=== PATIENT | male | born 1990 | race Caucasian/White ===

== ENCOUNTER 2024-04-04 03:05 | Emergency (ER) | payer BC, SELFPAY ==
--- NOTE | ~2024-04-04 | CT_ITS ---
CT of the Abdomen and Pelvis: Indication: Abdominal pain Technique: 2.5 mm axial scans were obtained through the abdomen and pelvis following intravenous adm inistration of 100 cc of Omnipaque 350. Dose reduction technique was used on this scan by utilizing a utomated exposure control and iterative reconstruction technique. The dose-length product (DLP) was 1 002.99 mGy-cm. Findings: Scans through the lung bases demonstrate small hiatal hernia. The liver, spleen, pancreas, adrenals and kidneys are within normal limits. Probable tiny gallstone. No evidence of aortic aneurysm. There are several mildly enlarged epigastric lymph nodes (axial image 42, 45 for example).. No bowel obstruction or bowel wall thickening. There is no evidence to suggest acute appendicitis. Images through the pelvis were performed. Urinary bladder unremarkable. No pelvic mass seen. No ascit es. Impression: Mildly enlarged epigastric lymph nodes, nonspecific. Probable tiny gallstone. Reviewed, dictated and finalized at [facility]. Impression: Mildly enlarged epigastric lymph nodes, nonspecific. Probable tiny gallstone.
[2024-04-04 03:16] VITALS: BP 150/115; PULSE 77; RESP 16; O2SAT 99
[2024-04-04 03:17] VITALS: BP 145/104; PULSE 74; RESP 20; TEMP 36.8; O2SAT 100
[2024-04-04 03:18] VITALS: BP 145/104; PULSE 79; RESP 16; O2SAT 98
[2024-04-04 03:28] LABS: Basophils Absolute Auto 0.1 K/mm3 (0.0-0.1); Basophils Percent Auto 0.7 % (0.2-1.2); Eosinophils Absolute Auto 0.3 K/mm3 (0-0.3); Eosinophils Percent Auto 2.5 % (0-4.4); Hematocrit 41.5 % (42.0-52.0); Hemoglobin 13.9 g/dL (14.0-18.0); Immature Granulocyte Absolute 0.05 K/mm3 (0.00-0.031); Immature Granulocyte Percent A 0.4 % (0-0.5); Lymphocytes Absolute Auto 2.15 K/mm3 (0.9-3.2); Lymphocytes Percent Auto 17.5 % (18.3-44.2); Mean Corpuscular HGB Conc 33.5 g/dl (32-36); Mean Corpuscular Volume 86.5 fl (80-100); Mean Platelet Volume 9.8 fl (7.4-10.4); Monocytes Absolute Auto 0.9 K/mm3 (0.1-0.6); Monocytes Percent Auto 7.3 % (2.6-8.5); Neutrophils Absolute Auto 8.8 K/mm3 (1.3-6.7); Neutrophils Percent Auto 71.6 % (45.5-73.1); Platelet Count Result 295 k/mm3 (150-375); Red Cell Distribution Width 12.9 % (11.5-14.5); White Blood Count 12.3 K/mm3 (4.5-10.0)
[2024-04-04 03:30] VITALS: BP 142/102; PULSE 77; RESP 18; O2SAT 99
[2024-04-04 03:40] LABS: Alanine Aminotransferase 43 U/L (6-50); Alkaline Phosphatase 87 U/L (38-126); Anion Gap 8 mmol/L (4-12); Aspartate Amino Transferase 27 U/L (17-59); Bilirubin,Total 0.6 mg/dL (0.2-1.3); Blood Urea Nitrogen 14 mg/dL (9-20); Calcium 9.7 mg/dL (8.4-10.2); Carbon Dioxide 28 mmol/L (22-30); Chloride 105 mmol/L (98-107); Estimated CRCL calculation 109 ml/min; Estimated Glomerular Filt Rate > 60; Glucose 116 mg/dL (65-110); Lipase 389 U/L (23-300); Potassium 4.1 mmol/L (3.4-5.0); Sodium 141 mmol/L (137-145)
--- NOTE | 2024-04-04 03:43 | ED.ABDPAIN ---
HPI - Abdominal Pain General Chief Complaint: Abdominal Pain Stated Complaint: abd and back pain Time Seen by Provider: 04/04/24 03:19 History of Present Illness HPI narrative: Patient presenting here with abdominal pain, feels like it radiates to his back, has been ongoing on and off for the last month, today started around 11:00 p.m.. Associated nausea vomiting. No history of gallstones or pancreatitis Related Data Allergies Allergy/AdvReac Type Severity Reaction Status Date / Time PEANUTS Allergy Uncoded 01/23/12 14:48 Review of Systems Review of Systems: All systems reviewed & are unremarkable except as noted in HPI and below Exam Narrative: EXAMINATION OF ORGAN SYSTEMS/BODY AREAS: Constitutional: Vital signs per nursing GENERAL:[No acute distress, non-toxic appearing.] HEAD: Normal with no signs of head trauma. EYES: EOMI, conjunctiva normal ENT: Hearing grossly intact LUNGS: Nonlabored breathing. HEART: [Regular rate and rhythm], normal radial and DP pulses ABD: [Soft], [minimally tender to palpation periumbilical] EXT: Normal range of motion SKIN: [No rashes or lesions.] NEURO: [Alert and oriented x 3. No gross focal sensory or strength deficits.] PSYCH: Normal affect Course Vital Signs Vital signs: Vital Signs Temperature 98.3 F 04/04/24 03:17 Pulse Rate 74 04/04/24 03:17 Respiratory Rate 20 04/04/24 03:17 Blood Pressure 145/104 H 04/04/24 03:17 Pulse Oximetry 100 04/04/24 03:17 Oxygen Delivery Room Air 04/04/24 03:17 Temperature 98.3 F 04/04/24 03:17 Pulse Rate 74 04/04/24 03:17 Respiratory Rate 20 04/04/24 03:17 Blood Pressure 145/104 H 04/04/24 03:17 Pulse Oximetry 100 04/04/24 03:17 Oxygen Delivery Room Air 04/04/24 03:17 MDM - Abdominal Pain MDM Narrative Medical decision making narrative: Electronic medical record was reviewed. Patient presented to the ED with complaint of [abdominal pain and vomiting]. Vitals [were within acceptable limits]. Physical exam revealed [tenderness to palpation in periumbilical abdomen]. Based on the patient's history and physical exam, my differential includes but is not limited to [gastritis, gastroenteritis, cholecystitis, pancreatitis, appendicitis]. Very unlikely ACS without chest pain, dissection or other aortic catastrophe without risk factors, family history, or neurovascular deficits. [IV access was established by nursing staff. Patient was given zofran, Protonix, morphine]. CBC, BMP, lipase, LFTs, bilirubin and alk phos were obtained. Labs were pertinent for elevated lipase. [Decision was made to obtain a CT-abdomen to evaluate for acute abdominal process. CT-abdomen per radiology interpretation is unremarkable for acute intra-abdominal process, no signs of hydronephrosis, cholecystitis, appendicitis.] On reevaluation, the patient states that they are feeling much better. There were no witnessed episodes of vomiting in the emergency department. They are not complaining of any new abdominal pain. Repeat examination did not show any significant guarding or rebound. No new tenderness. At this time I do not feel there is any further emergent treatment to be provided. The patient was given strict return precautions, if they are to develop any worsening abdominal pain, vomiting, or blood in the vomit they are to return to the emergency department immediately. Patient verbally acknowledges understanding these directions. [The patient was informed of the above diagnostic test findings.] No further workup is necessary at this time. They will be discharged home [with prescriptions]. They were advised to follow-up with [their PCP] in 2 days. The patient feels that this is appropriate medical decision making and verbalizes an understanding of the discharge instructions. Lab Data 04/04/24 03:22 04/04/24 03:22 Labs: Lab Results 04/04/24 04/04/24 Range/Units 03:22 03:48 WBC 12.3 H (4.5-10.0
[2024-04-04 03:53] LABS: Appearance Urine Clear (Clear); Bilirubin Urine Negative (Negative); Blood Urine Negative (Negative); Color Urine Yellow (Yellow); Glucose Urine UA Negative (Negative); Ketones Urine Negative (Negative); Leukocyte Esterase Ur Negative LEU/UL (Negative); Nitrate Urine Negative (Negative); Protein Urine Negative (Negative); Specific Grav Ur 1.026 (1.001-1.035); Urobilinogen Urine 0.2 mg/dL (<2.0); pH Urine 6.5 (5.0-9.0)
[2024-04-04 03:59] LABS: Add Urine Microscopic? NO
[2024-04-04 04:45] VITALS: BP 130/89; PULSE 79; RESP 14; O2SAT 99
--- NOTE | 2024-04-04 04:58 | PC.NURSE ---
please see downtime charting.
== END 2024-04-04 05:10 | disposition home or self-care (01) ==
PROVIDERS: Emergency Provider Emergency Medicine; PCP Family Medicine Adolescent Medicine
DX: R10.9 Unspecified abdominal pain (principal)
CPT/HCPCS: 36415; 74177; 80053; 81003; 83690; 85025; 96361; 96374; 96375; 99284; C9113; J2270; J2405; J7120; Q9967

== ENCOUNTER 2024-04-06 11:57 | Outpatient (CLI) | payer BC, SELFPAY ==
[2024-04-06 12:22] LABS: Hematocrit 41.1 % (42.0-52.0); Hemoglobin 13.5 g/dL (14.0-18.0); Mean Corpuscular HGB Conc 32.8 g/dl (32-36); Mean Corpuscular Hemoglobin 28.6 pg (26-34); Mean Corpuscular Volume 87.1 fl (80-100); Mean Platelet Volume 9.8 fl (7.4-10.4); Platelet Count Result 288 k/mm3 (150-375); Red Blood Count 4.72 M/mm3 (4.6-6.20); Red Cell Distribution Width 12.5 % (11.5-14.5); White Blood Count 9.9 K/mm3 (4.5-10.0)
[2024-04-06 12:35] LABS: Alanine Aminotransferase 26 U/L (6-50); Albumin Level 4.7 g/dL (3.5-5.1); Alkaline Phosphatase 73 U/L (38-126); Anion Gap 9 mmol/L (4-12); Aspartate Amino Transferase 21 U/L (17-59); Bilirubin,Total 0.6 mg/dL (0.2-1.3); Blood Urea Nitrogen 13 mg/dL (9-20); CRP 1.1 mg/dL (<1.0); Calcium 9.6 mg/dL (8.4-10.2); Carbon Dioxide 28 mmol/L (22-30); Chloride 102 mmol/L (98-107); Estimated Glomerular Filt Rate > 60; Glucose 107 mg/dL (65-110); Lipase 70 U/L (23-300); Potassium 3.7 mmol/L (3.4-5.0); Sodium 139 mmol/L (137-145)
[2024-04-06 12:55] LABS: Erythrocyte Sedimentation Rate 17 mm/hr (0-20)
== END 2024-04-06 11:58 | disposition home or self-care (01) ==
LOC: ANHLAB 11:57
PROVIDERS: PCP Family Medicine Adolescent Medicine; Visit Provider Nurse Practitioner
DX: D72.829 Elevated white blood cell count, unspecified (principal); K80.20 Calculus of gallbladder without cholecystitis without obstruction; R10.33 Periumbilical pain; R59.1 Generalized enlarged lymph nodes; R74.8 Abnormal levels of other serum enzymes
CPT/HCPCS: 36415; 80053; 83690; 85027; 85652; 86140

== ENCOUNTER 2024-04-11 09:46 | Outpatient (CLI) | payer BC, SELFPAY ==
--- NOTE | ~2024-04-11 | US_ITS ---
COMPLETE ABDOMINAL ULTRASOUND Ordering provider: Rody Umanzor APRN History: . gallstones, abdominal pain . Comparison: None. FINDINGS: LIVER: Normal size and echotexture. No focal hepatic lesions or perihepatic fluid collections are aquiles ntified. Portal vein flow is normal. GALLBLADDER: Stones are noted. Wall thickness is 1 to 3 cm. No evidence for sludge, gallbladder wall thickening or pericholecystic fluid collections. A negative sonographic Ellsworth's sign was noted. BILIARY DUCTS: No evidence for intra or extrahepatic biliary dilation. Common bile duct measures 7.1 mm in diameter which is within normal limits. PANCREAS: Not well demonstrated. IVC: Patent. FREE FLUID: None. IMPRESSION: Cholelithiasis. No evidence of cholecystitis. Reviewed, dictated and finalized at location A.
== END 2024-04-11 09:47 ==
LOC: GOSHIMG 09:47
PROVIDERS: PCP Family Medicine Adolescent Medicine; Visit Provider Nurse Practitioner
DX: K80.20 Calculus of gallbladder without cholecystitis without obstruction (principal)
CPT/HCPCS: 76705